=== PATIENT | male | born 1970 | race Caucasian/White ===

== ENCOUNTER 2019-03-24 08:30 | Outpatient (CLI) | payer OTHER ==
[~2019-03-24] VITALS: Ht 182 cm; Wt 90.9 kg
[~2019-03-24 08:30] MED LIST: ACHD5005 PO; ALBU2.5V4 IH; FLT11013 IH
[2019-03-24] MEDS ORDERED: METF-397 PO (08:31)
[2019-03-24] MEDS ORDERED: ATOR10TA66 PO (08:56)
[2019-03-24] MEDS ORDERED: ASPI-586 PO (08:56)
[2019-03-24] MEDS ORDERED: RT-ALBUINH IH (08:56)
[2019-03-24] MEDS ORDERED: MONT10TA24 PO (08:56)
[2019-03-24] MEDS ORDERED: LISI10TA2 PO (08:56)
[2019-03-24] MEDS ORDERED: GLIP5TAB13 PO (08:56)
== END 2019-03-24 09:07 | disposition home or self-care (01) ==
LOC: PREOP 08:30
PROVIDERS: ATTEND Surgery
DX: Z01.818 Encounter for other preprocedural examination (principal)